=== PATIENT | male | born 1990 | race Caucasian/White ===

== ENCOUNTER 2017-07-07 04:01 | Emergency (ER) | payer BC, OTHER ==
[~2017-07-07] VITALS: Ht 177.8 cm; Wt 190.5 kg
--- NOTE | ~2017-07-07 | EKG ---
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
[2017-07-07 04:26] LABS: ABSOLUTE NEUTROPHILS 6.9 thou/uL (1.4-8.2); BASOPHILS 1.1 % (0.0-2.0); EOSINOPHILS 1.3 % (0.0-3.0); HEMATOCRIT 42.8 % (42.0-52.0); HEMOGLOBIN 14.7 gm/dL (14.0-18.0); MCH 30.5 pg (26.0-34.0); MCHC 34.3 g/dL (28.0-37.0); MONOCYTES 7.9 % (1.0-8.0); PLATELET COUNT 340 thou/uL (150-400); POLYS 63.7 % (36.0-66.0); RBC 4.81 mil/uL (4.50-6.00); WBC 10.7 thou/uL (4.0-11.0)
[2017-07-07 04:36] LABS: BUN 11 mg/dL (7-18); CALCIUM 8.9 mg/dL (8.5-10.1); CHLORIDE 105 mmol/L (98-107); CO2 28 mmol/L (21-32); CREATININE 0.7 mg/dL (0.7-1.3); GLUCOSE 145 mg/dL (74-106)
[2017-07-07 04:42] LABS: ALBUMIN 3.6 g/dL (3.4-5.0); DIRECT BILIRUBIN < 0.1 mg/dL (<0.1-0.3); LIPASE 81 U/L (73-393); SGOT 12 U/L (15-37); SGPT 29 U/L (30-65); TOTAL BILIRUBIN 0.3 mg/dL (<0.1-1.0); TOTAL PROTEIN 6.9 g/dL (6.4-8.2)
[2017-07-07 04:50] LABS: ANION GAP 8 mmol/L (7-16); POTASSIUM 3.8 mmol/L (3.5-5.1); SODIUM 141 mmol/L (136-145)
[2017-07-07] MEDS ORDERED: PHENERGAN 25 MG25 M1 PO (05:15)
== END 2017-07-07 05:40 | disposition home or self-care (01) ==
LOC: ER 04:01
PROVIDERS: Emergency Medicine
DX: R10.9 Unspecified abdominal pain (principal); R11.2 Nausea with vomiting, unspecified; F41.9 Anxiety disorder, unspecified